=== PATIENT | female | born 1995 | race Two or more races ===

== ENCOUNTER 2023-08-18 23:36 | Emergency (ER) | payer SELFPAY ==
[~2023-08-18] VITALS: Ht 165.1 cm; Wt 79.9 kg
[2023-08-19] MEDS: KETOROLAC TROMETH 60MG/2ML VIAL IM ONE (00:45)
[2023-08-19 01:01] LABS: Basophils # (auto) 0.1 10 ^3/uL (0-0.2); Basophils % (auto) 0.7 % (0.0-2.0); Eosinophils # (auto) 0.3 10 ^3/uL (0-0.8); Hematocrit 38.7 % (36.0-46.0); Lymphocytes # (auto) 1.8 10 ^3/uL (0.4-5.4); Mean Corpuscular Hgb Conc. 32.4 g/dL (32.0-36.0); Neutrophils % (auto) 76.9 % (37.0-80.0)
[2023-08-19 01:04] LABS: Hemoglobin 12.6 g/dL (12.2-16.2); Lymphocytes % (auto) 13.2 % (10.0-50.0); Mean Corpuscular Hemoglobin 27.1 pg (28.0-32.0); Mean Corpuscular Volume 83.6 fL (80.0-100.0); Monocytes % (auto) 7.2 % (0.0-12.0); Neutrophils # (auto) 10.8 10 ^3/uL (1.6-8.6); Red Blood Cells 4.63 10^6/uL (4.0-5.20); Red Cell Distribution Width 14.3 % (11.8-14.3)
[2023-08-19 01:05] LABS: Chloride 105 mmol/L (98-107); Potassium 4.4 mmol/L (3.5-5.1); Sodium 137 mmol/L (136-145)
[2023-08-19 01:06] LABS: Anion Gap 5 (5-15); Carbon Dioxide 27 mmol/L (20-30)
[2023-08-19 01:07] LABS: Calcium 9.5 mg/dL (8.5-10.1)
[2023-08-19 01:07] LABS: Urine Bacteria FEW /hpf (None Seen); Urine Blood TRACE /uL (Negative); Urine Clarity Clear (Clear); Urine Color Light-Yellow (Yellow); Urine Mucus FEW (None Seen); Urine Protein, UAD Negative (Negative); Urine Specific Gravity 1.018 (1.001-1.035); Urine Urobilinogen Normal (Negative); Urine WBC 4 /hpf (0 - 5)
[2023-08-19 01:12] LABS: BUN/Creatinine Ratio 12.5 (10.0-20.0); Blood Urea Nitrogen 10 mg/dL (9-23); Glucose 103 mg/dL (74-106)
[2023-08-19] MEDS: MORPHINE SULFATE 4 MG/ML SYR/VIAL IM ONE (03:42)
[2023-08-19 04:47] VITALS: PULSE 97; RESP 18; O2SAT 99
[2023-08-19 04:50] VITALS: BP 122/85; PULSE 97; RESP 18; TEMP 97.4; O2SAT 99
== END 2023-08-19 05:21 | disposition home or self-care (01) ==
LOC: EDBD 23:36 → ER 23:36
DX: O34.81 Maternal care for other abnormalities of pelvic organs, first trimester (principal); R10.2 Pelvic and perineal pain; N83.202 Unspecified ovarian cyst, left side; N83.201 Unspecified ovarian cyst, right side; Z3A.01 Less than 8 weeks gestation of pregnancy
CPT/HCPCS: 36415; 76801; 76817; 80048; 81001; 84702; 85025; 96372; 99285; J1885; J2270